=== PATIENT | female | born 1975 | race American Indian/Alaskan Native ===

== ENCOUNTER 2018-01-05 08:22 | Outpatient (CLI) | payer BC ==
--- NOTE | 2018-01-05 16:33 | Mammography Report ---
BILATERAL DIGITAL SCREENING MAMMOGRAM with CAD: 01/05/18 08:22:00 CLINICAL: Routine screening. COMPARISON:07/08/15 FINDINGS: The breasts are almost entirely fatty.The left breast is smaller than the right but this is unchanged compared to prior exam. A few benign calcifications. No mass, architectural distortion or suspicious calcifications. IMPRESSION: No mammographic evidence of malignancy. BI-RADS CATEGORY: 2 - - Benign RECOMMENDATION: Routine mammographic screening in one year. COMMENT: Patient follow-up letters are generated by our [employer] application.
== END 2018-01-05 08:23 | disposition home or self-care (01) ==
LOC: SPVWC 08:22
PROVIDERS: ATTEND Nurse Practitioner Women's Health
DX: Z12.31 Encounter for screening mammogram for malignant neoplasm of breast (principal)
CPT/HCPCS: 77067

== ENCOUNTER 2018-11-11 09:46 | Day surgery (SDC) | payer BC ==
--- NOTE | 2018-11-07 10:16 | History and Physical Report ---
History of Present Illness Date of examination: 11/07/18 Date of admission: 11/11/2018 Chief complaint: heavy vaginal bleeding History of present illness: Visit Type: Pre-Op CC: pre op. History of Present Illness: pt presents for pre op visit : H'scope w/ ablaition....raymond Bleeding is heavier than normal. States she normally has heavy period but in august she had two periods with 1st being her normal flow(heavy) and the second being "really heavy". This is the first time that this has happened. Pt describes blood as gushing out. Pt also c/o having a buring sensation at the urethra when urine comes out. She states she was treated for a snius infection with antibx and feels she may have a yeast infection. No chest pain , palpitations, sob, or dizziness at this time. I d/w need for embx and SIS. She desires to have the embx today and will rto for SIS. All risk/benefits/alternatives were d/w pt and questions were addressed and answered. Consent signed and placed on the chart. SIS done w/o difficulty. Sono showed several small fibroids largest measuing 4cm. SIS showed what appears to be an endometrial mass/polyp. Pt desires the novasure ablation and removal of endometrial mass vis myosure/ hysteroscopy. All risk/benefits/alternatives were d/w pt and questions were addressed and answered. Vital Signs: Patient Profile: 43 Years Old Female Height: 60 inches (152.40 cm) Weight: 211 pounds BMI: 41.20 BP sittin / 78 (left arm) Current Method of Contraception: BTL Past History : 5 Term Births: 4 Living Children: 4 Para: 4 Elect. Ab: 1 FOOT DOCTOR History Uterine Surgery (not C/S): negative Operations: positive Tubal Ligation Hospitalizations: negative Anesthesia Complications: negative Abnormal PAP: negative Uterine Anomaly: negative NATASHA Exposure: negative Infertility: negative Infection History HIV Risk Eval: no Hx of STD: chlamydia Active Medications (reviewed today): CHOLESTEROL MEDICATION () ALEVE TABLET (NAPROXEN SODIUM TABS) VITAMIN D TABS () LOSARTAN POTASSIUM-HCTZ TABLET (LOSARTAN POTASSIUM-HCTZ TABS) Current Allergies (reviewed today): No known allergies Past Medical History: Reviewed history from 02/02/2014 and no changes required: Diabetes, Type 2 Hypertension vit D def. macular degeneration Past Surgical History: Reviewed history from 02/02/2014 and no changes required: positive Tubal Ligation [--[facility]] Risk Factors: Smoked Tobacco Use: Never smoker Smokeless Tobacco Use: Never Drug use: no HIV high-risk behavior: no Alcohol use: yes Exercise: yes Seatbelt use: 100 % Previous Tobacco Use: Signed On 10/13/2018 Smoked Tobacco Use: Never smoker Smokeless Tobacco Use: Never Drug use: no HIV high-risk behavior: no Caffeine use: 1 drinks per day Previous Alcohol Use: Signed On 10/13/2018 Alcohol use: yes Type: occ Drinks per day: <1 Exercise: yes Seatbelt use: 100 % [[facility]] Laboratory Results Urine HCG: negative Physical Exam Appearance: well developed, well nourished, no acute distress Other Exams Lungs: no rales, rhonchi, or wheezes Heart: S1, S2, no murmur, rub, or gallop Abdomen: soft, non-tender, no masses, bowel sounds normal Extremities: normal alignment, no joint enlargement, crepitus, masses or tenderness; normal tone and strength Genitourinary Exam Comments: deferred until EUA Past History Past Medical History: other (see hpi) Past Surgical History: other (see hpi) FOOT DOCTOR History: other (see hpi) Family/Genetic History: other (see hpi) - Obstetrical History : 5 Number of Living Children: 5 Medications and Allergies Allergies Allergy/AdvReac Type Severity Reaction Status Date / Time tomato Allergy Unknown Verified 11/03/18 09:41 Home Medications Medication Instructions Recorded Confirmed Last Taken Type Losartan Potassium [Cozaar] 25 mg PO DAILY 11/03/18 11/03/18 Unknown History Simvastatin 20 mg PO DAILY 11/03/18 11/03/18 Unknown History - Physical Exam Breasts: Cardiovascular: Regular rate, Normal S1, Normal S2 Abdomen: Positive: normal appearance, soft, normal bowel sounds. Negative: distention, tenderness Vulva: both: normal Cervix: Negative: lesion, discharge Uterus: Positive: normal size, normal contour Adnexa: both: normal Anus/Rectum: Positive: heme negative Extremities: Deep Tendon Reflex Grade: Normal +2 Results All other labs normal. Assessment and Plan - Patient Problems (1) Endometrial mass Status: Acute (2) Menorrhagia Status: Acute Qualifiers: Menorrahagia type: with regular cycle Qualified Code(s): N92.0 - Excessive and frequent menstruation with regular cycle Plan to address problem: -admit -prepare for hysteroscopy, with possilble myosure and novasure ablation -all risk, benefits and alternatives were d/w pt and questions were addressed and answered.
[2018-11-11 10:33] LABS: Hematocrit 35.1 % (30.3-42.9); Hemoglobin 11.2 gm/dl (10.1-14.3); Mean Corpuscular HGB Conc 32 % (30-34); Mean Corpuscular Volume 75 fl (79-97); Platelet Count 384 K/mm3 (140-440); Red Blood Count 4.69 M/mm3 (3.65-5.03); Red Cell Distribution Width 15.6 % (13.2-15.2)
[2018-11-11] MEDS ORDERED: LACTATED RINGERS 1,000 ML ONE (10:34)
[2018-11-11] MEDS ORDERED: VERSED ONE (10:34)
[2018-11-11 10:37] LABS: Mean Corpuscular Hemoglobin 24 pg (28-32)
[2018-11-11] MEDS ORDERED: SUBLIMAZE ONE (13:59)
[2018-11-11] MEDS ORDERED: DIPRIVAN 10 MG/ML IV ONE ×2 (13:59→15:02)
[2018-11-11] MEDS ORDERED: XYLOCAINE MPF 2% ONE (14:00)
[2018-11-11] MEDS ORDERED: DECADRON ONE (14:01)
[2018-11-11] MEDS ORDERED: ZOFRAN ONE (14:02)
[2018-11-11] MEDS ORDERED: QUELICIN ONE (14:23)
--- NOTE | 2018-11-11 14:42 | Anesthesia Day of Surgery ---
Anesthesia Day of Surgery - Day of Surgery Patient Examined: Yes Patient H&P Reviewed: Yes Patient is NPO: Yes
[2018-11-11] MEDS ORDERED: ZOFRAN IV PRN (14:43)
[2018-11-11] MEDS ORDERED: DEMEROL IV PRN (14:43)
[2018-11-11] MEDS ORDERED: DILAUDID IV PRN (14:43)
--- NOTE | 2018-11-11 14:43 | Anesthesia Consultation ---
Anesthesia Consult and Med Hx Date of service: 11/11/18 - Airway Anesthetic Teeth Evaluation: Good ROM Head & Neck: Adequate Mental/Hyoid Distance: Adequate Mallampati Class: Class II Intubation Access Assessment: Probably Good - Pulmonary Exam CTA: Yes - Cardiac Exam Cardiac Exam: RRR - Pre-Operative Health Status ASA Pre-Surgery Classification: ASA2 Proposed Anesthetic Plan: General - Cardiovascular System Hx Hypertension: Yes (Since 2014) - Central Nervous System Hx Psychiatric Problems: No - Hematic Hx Anemia: Yes Hx Sickle Cell Disease: Yes (Trait only) - Other Systems Hx Alcohol Use: Yes (Occas) Hx Cancer: No
--- NOTE | 2018-11-11 15:38 | Operative Report ---
Operative Report Operative Report: Date of procedure: 11/11/2018 Pre-operative diagnosis: Menorrhagia Uterine fibroids Post-operative diagnosis: Same Procedure name(s): 1. Hysteroscopy 2. NovaSure ablation Surgeon: Asiya Holly M.D. Clinical Team Manager: CHANDLER Anesthesia: Gen. endotracheal anesthesia EBL: Minimal Urine output: 20 mL of urine out via straight catheterization prior to the onset of the procedure Fluids: 900 mL Findings: Grossly normal-appearing uterine cavity thickened endometrial tissue noted prior to NovaSure. Indications: Patient with a history of heavy menstrual bleeding and uterine fibroids. Patient desired NovaSure ablation. Endometrial biopsy negative. Patient underwent saline infusion sonogram that showed what appeared to be endometrial polyp versus endometrial tissue. Endometrial polyp was not noted on hysteroscopy. Procedure: Patient was taken to the operating room where she was placed under general endotracheal anesthesia she was then prepped and draped in normal sterile fashion in dorsal lithotomy position with legs in Sebastián stirrups. Straight catheterization of the bladder was performed at this time. Sterile speculum was placed inside of the vagina to visualize the entire cervix. The anterior lip of the cervix was grasped with a single-tooth tenaculum and the uterus was sounded to 9 cm. The cervix was then dilated in order to allow passage of the hysteroscope. Hysteroscopy yielded the above-stated findings. The cervical length was noted to be 4 cm. The uterine cavity length was calculated to be 5 cm. The cervix was then dilated more to allow passage of the NovaSure device. With placement of the NovaSure device the cavity width was noted to be 3.0cm. The integrity of the seal was then tested. The device did pass the testing. The power that was used for the NovaSure ablation was 83. The amount of time of the ablation was 103 seconds. Hysteroscopy following the ablation noted that there was adequate cauterization of the uterine cavity. All instruments were removed from the vagina and the cervix. Patient tolerated the procedure well. All counts were correct.
--- NOTE | 2018-11-11 15:39 | Short Stay Summary ---
Short Stay Documentation Date of service: 11/11/18 - History H&P: dictated - Allergies and Medications Current Medications: Allergies tomato Allergy (Verified 11/03/18 09:41) Unknown Found with allergy testing Home Medications Medication Instructions Recorded Confirmed Last Taken Type Losartan Potassium [Cozaar] 25 mg PO DAILY 11/03/18 11/03/18 Unknown History Simvastatin 20 mg PO DAILY 11/03/18 11/03/18 Unknown History Active Medications Hydromorphone HCl (Dilaudid) 0.5 mg IV Q10MIN PRN PRN Reason: Pain , Severe (7-10) Meperidine HCl (Demerol) 25 mg IV ONCE PRN PRN Reason: Shivering Ondansetron HCl (Zofran) 4 mg IV ONCE PRN PRN Reason: Nausea And Vomiting - Physical exam Breasts: - Brief post op/procedure progress note Date of procedure: 11/11/18 Pre-op diagnosis: menorrhagia Post-op diagnosis: same Procedure: NovaSure ablation with hysteroscopy Anesthesia: GETA Findings: See operative report Surgeon: JOSE DESAI Estimated blood loss: minimal Pathology: list (endometrial tissue) Specimen disposition: to lab Condition: stable - Hospital course Hospital course: Admitted for above-stated procedure. Patient underwent above-stated procedure that was not complicated. Patient will be discharged home once she has met discharge criteria in the PACU. Patient will follow up in office in 1 week for her postoperative follow-up. - Disposition Condition at discharge: Good Disposition: DC-01 TO HOME OR SELFCARE - Discharge Diagnoses (1) Endometrial mass Status: Acute (2) Menorrhagia Status: Acute Qualifiers: Menorrahagia type: with regular cycle Qualified Code(s): N92.0 - Excessive and frequent menstruation with regular cycle Short Stay Discharge Plan Activity: no restrictions Diet: regular, other (pelvic rest and nothing in the vagina for the next 2 weeks.) Follow up with: JESSICA GILLILAND MD [Primary Care Provider] - 7 Days Prescriptions: Ibuprofen 800 mg PO Q6HR #30 tablet oxyCODONE /ACETAMINOPHEN [Percocet 5/325] 1 tab PO Q4HR #30 tab
[2018-11-11] MEDS ORDERED: NACL 0.9% IR ONE ×2 (15:47)
--- NOTE | 2018-11-11 16:02 | Post Anesthesia Evaluation ---
- Post Anesthesia Evaluation Patient Participated: Yes Airway Patent: Yes Stable Respiratory Function: Yes Nausea/Vomiting: No Temp > 96.8F: Yes Pain Manageable: Yes Adequeate Hydration: Yes Anesthesia Complications: No Block Receding Appropriately: Not Applicable Patient on Ventilator: No
[2018-11-11] MEDS ORDERED: MOTRIN PO PRN (16:14)
[2018-11-11 16:37] VITALS: BP 110/75
== END 2018-11-11 17:20 | disposition home or self-care (01) ==
LOC: OR 09:46
PROVIDERS: ATTEND Obstetrics & Gynecology
DX: N92.0 Excessive and frequent menstruation with regular cycle (principal); D25.9 Leiomyoma of uterus, unspecified; E78.00 Pure hypercholesterolemia, unspecified; I10 Essential (primary) hypertension; K21.9 Gastro-esophageal reflux disease without esophagitis; D57.3 Sickle-cell trait; Z79.899 Other long term (current) drug therapy; Z91.018 Allergy to other foods; Z72.89 Other problems related to lifestyle; Z98.890 Other specified postprocedural states
CPT/HCPCS: 36415; 58563; 81025; 82962; 85027; A4217; J0330; J1100; J1170; J2250; J2405; J2704; J3010; J7120

== ENCOUNTER 2019-01-20 13:10 | Outpatient (CLI) | payer BC ==
--- NOTE | 2019-01-20 14:28 | Mammography Report ---
BILATERAL DIGITAL SCREENING MAMMOGRAM with CAD: 01/20/19 13:10:00 CLINICAL: Routine screening. COMPARISON:01/05/18 FINDINGS: The breasts are almost entirely fatty.The left breast is smaller than the right but this is unchanged compared to previous exams. No mass, architectural distortion or suspicious calcifications. IMPRESSION: No mammographic evidence of malignancy. BI-RADS CATEGORY: 2 - - Benign RECOMMENDATION: Routine mammographic screening in one year. COMMENT: Patient follow-up letters are generated by our [employer] application.
== END 2019-01-20 13:11 | disposition home or self-care (01) ==
LOC: SPVWC 13:10
PROVIDERS: ATTEND Obstetrics & Gynecology
DX: Z12.31 Encounter for screening mammogram for malignant neoplasm of breast (principal); E78.00 Pure hypercholesterolemia, unspecified; I10 Essential (primary) hypertension; K21.9 Gastro-esophageal reflux disease without esophagitis
CPT/HCPCS: 77067

== ENCOUNTER 2020-01-26 12:52 | Outpatient (CLI) | payer BC ==
--- NOTE | 2020-01-29 14:28 | Mammography Report ---
DIGITAL SCREENING MAMMOGRAM WITH CAD, 01/29/2020 INDICATION: Routine screening mammography. TECHNIQUE: Digital bilateral 2D mammography was obtained in the craniocaudal and mediolateral obliq ue projections. This examination was interpreted with the benefit of Computer-Aided Detection analysi s. COMPARISON: 01/20/2019 FINDINGS: Breast Density: The breasts are almost entirely fatty. There is no evidence of dominant mass, suspicious calcifications or architectural distortion in eithe r breast. IMPRESSION: No mammographic evidence of malignancy. Follow up recommendation: Routine yearly BI-RADS Category 1: Negative. A "normal" or negative report should not discourage follow up or biopsy of a clinically significant f inding. A written summary of these findings will be mailed to the patient. The patient will be entered into a mammography reporting system which will generate a reminder letter for the patient's next appointmen t at the appropriate interval. The [employer] recommends yearly mammograms starting at age 40 and continuing as l gladis as a woman is in good health. Breast MRI is recommended for women with an approximate 20-25% or greater lifetime risk of breast cancer, including women with a strong family history of breast or ova susy cancer or who have been treated for Hodgkin's disease. Signer Name: Ricardo Harrell MD Signed: 01/29/2020 2:23 PM Workstation Name: [id number]
== END 2020-01-26 12:53 | disposition home or self-care (01) ==
LOC: SPVWC 12:52
PROVIDERS: ATTEND Obstetrics & Gynecology
DX: Z12.31 Encounter for screening mammogram for malignant neoplasm of breast (principal)
CPT/HCPCS: 77067

== ENCOUNTER 2021-02-04 14:16 | Outpatient (CLI) | payer BC ==
--- NOTE | 2021-02-04 15:37 | Mammography Report ---
BILATERAL DIGITAL SCREENING MAMMOGRAM WITH CAD HISTORY: Screening mammogram. TECHNIQUE: Routine digital mammographic imaging performed. This examination was interpreted with jordna bernal benefit of Computer-aided Detection analysis. COMPARISON: 01/26/2020, 01/20/2019, 01/05/2018. FINDINGS: Breast Density: predominantly fatty breast parenchymal pattern. Digital CC and MLO views demonstrate no mammographic evidence of malignancy. IMPRESSION: No mammographic evidence of malignancy. If the clinical examination remains stable, recommend bilate ral mammogram in approximately one year. BIRADS 1: Negative. FURTHER INFORMATION: According to the [employer], yearly mammograms are recommend ed starting at age 40 and continuing as long as a woman is in good health. Clinical Breast Exams shou ld be part of a periodic health exam-about every 3 years for women in their 20s and 30s and every yea r for women 40 and over. Breast self exam is an option for women starting in their 20s. Any breast ch chantal noted on a breast self exam should be reported promptly to the patient's healthcare provider. Br east MRI is recommended for women with an approximately 20-25% or greater lifetime risk of breast can cer, including women with a strong family history of breast or ovarian cancer and women who have been treated for Hodgkin's disease. A negative Mammography report should not discourage follow up or biopsy of a clinically significant f inding and/or abnormality. Dense breast tissue may obscure small neoplasms. The patient will be entered into a reminder system with a target due date for the next screening mamm ogram. Signer Name: Adam Ayala MD Signed: 02/04/2021 3:33 PM Workstation Name: [id number]
== END 2021-02-04 14:17 | disposition home or self-care (01) ==
LOC: SPVWC 14:16
PROVIDERS: ATTEND Obstetrics & Gynecology
DX: Z12.31 Encounter for screening mammogram for malignant neoplasm of breast (principal)
CPT/HCPCS: 77067

== ENCOUNTER 2022-02-10 12:39 | Outpatient (CLI) | payer BC ==
--- NOTE | 2022-02-11 09:49 | Mammography Report ---
DIGITAL SCREENING MAMMOGRAM WITH CAD, 02/10/2022 CLINICAL INFORMATION / INDICATION: Routine screening TECHNIQUE: Digital bilateral 2D mammography was obtained in the craniocaudal and mediolateral obliqu e projections. This examination was interpreted with the benefit of Computer-Aided Detection analysis . COMPARISON: 02/04/2021 FINDINGS: Breast Density: The breasts are almost entirely fatty. No dominant mass, suspicious calcifications, or architectural distortion in either breast. IMPRESSION: No mammographic evidence of malignancy. Follow up recommendation: Routine yearly BI-RADS Category 1: NEGATIVE A "normal" or negative report should not discourage follow up or biopsy of a clinically significant f inding. A written summary of these findings will be mailed to the patient. The patient will be entered into a mammography reporting system which will generate a reminder letter for the patient's next appointmen t at the appropriate interval. The [employer] recommends yearly mammograms starting at age 40 and continuing as l gladis as a woman is in good health. Breast MRI is recommended for women with an approximate 20-25% or greater lifetime risk of breast cancer, including women with a strong family history of breast or ova susy cancer or who have been treated for Hodgkin's disease. Signer Name: Binu Beyer MD Signed: 02/11/2022 9:44 AM Workstation Name: [email or web address]
== END 2022-02-10 12:40 | disposition home or self-care (01) ==
LOC: SPVWC 12:39
PROVIDERS: ATTEND Obstetrics & Gynecology
DX: Z12.31 Encounter for screening mammogram for malignant neoplasm of breast (principal)
CPT/HCPCS: 77067